=== PATIENT | female | born 1945 | race Native Hawaiian/Other Pacific Islander ===

== ENCOUNTER 2016-11-08 20:28 | Outpatient (CLI) | payer OTHER ==
[~2016-11-08] VITALS: Ht 165.1 cm; Wt 64.4 kg
== END 2016-11-08 23:00 | disposition home or self-care (01) ==
LOC: INF 20:28
DX: M00.012 Staphylococcal arthritis, left shoulder (principal)
CPT/HCPCS: 96365; 96366; 96375; J1642; J3370

== ENCOUNTER 2016-11-09 07:55 | Outpatient (CLI) | payer OTHER ==
[~2016-11-09] VITALS: Ht 165.1 cm; Wt 64.4 kg
== END 2016-11-09 19:01 | disposition home or self-care (01) ==
LOC: INF 07:55
DX: M00.012 Staphylococcal arthritis, left shoulder (principal)
CPT/HCPCS: 96365; 96366; 96375; J3370

== ENCOUNTER 2016-11-10 08:01 | Outpatient (CLI) | payer OTHER ==
[~2016-11-10] VITALS: Ht 30.5 cm; Wt 0.5 kg
[2016-11-10 08:10] VITALS: BP 134/91; TEMP 98.6
--- NOTE | 2016-11-10 08:10 | NUR ---
PT HERE FOR INFUSION TO ROOM 121. R PICC FLUSHED EASILY WITH NS. POSITIVE BLOOD RETURN. VANCOMYCIN PREMIXED FROM PHARMACY INFUSING @ [id number]
== END 2016-11-10 23:00 | disposition home or self-care (01) ==
LOC: INF 08:01
DX: M00.012 Staphylococcal arthritis, left shoulder (principal)
CPT/HCPCS: 96365; 96366; 96375; J3370

== ENCOUNTER 2016-11-11 07:54 | Outpatient (CLI) | payer OTHER ==
[~2016-11-11] VITALS: Ht 30.5 cm; Wt 0.5 kg
== END 2016-11-11 19:03 | disposition home or self-care (01) ==
LOC: INF 07:54
DX: M00.012 Staphylococcal arthritis, left shoulder (principal)
CPT/HCPCS: 96365; 96366; 96375; J3370

== ENCOUNTER 2016-11-12 08:03 | Outpatient (CLI) | payer OTHER ==
[~2016-11-12] VITALS: Ht 30.5 cm; Wt 0.5 kg
== END 2016-11-12 19:29 | disposition home or self-care (01) ==
LOC: INF 08:03
DX: M00.012 Staphylococcal arthritis, left shoulder (principal)
CPT/HCPCS: 96365; 96366; 96375; 96376; J1642; J3370

== ENCOUNTER 2016-11-13 07:59 | Outpatient (CLI) | payer OTHER ==
[~2016-11-13] VITALS: Ht 165.1 cm; Wt 62.1 kg
[2016-11-13 11:10] VITALS: BP 140/70
[2016-11-13 11:43] VITALS: BP 123/83; TEMP 98.9
== END 2016-11-13 19:28 | disposition home or self-care (01) ==
LOC: INF 07:59
DX: M00.012 Staphylococcal arthritis, left shoulder (principal)
CPT/HCPCS: 96365; 96366; 96375; 96376; J1642; J3370

== ENCOUNTER 2016-11-14 07:51 | Outpatient (CLI) | payer OTHER ==
[~2016-11-14] VITALS: Ht 165.1 cm; Wt 61.7 kg
[2016-11-14 08:00] VITALS: BP 144/87; TEMP 97.8
[2016-11-14 10:15] VITALS: BP 134/77; TEMP 97.8
== END 2016-11-14 23:40 | disposition home or self-care (01) ==
LOC: INF 07:51
DX: M00.012 Staphylococcal arthritis, left shoulder (principal)
CPT/HCPCS: 96365; 96366; 96375; 96376; J1642; J3370

== ENCOUNTER 2016-11-15 07:45 | Outpatient (CLI) | payer OTHER ==
[2016-11-15 08:35] LABS: PLATELET COUNT 407 K/uL (152-353)
== END 2016-11-15 19:14 | disposition home or self-care (01) ==
LOC: INF 07:45
PROVIDERS: Internal Medicine
DX: M00.012 Staphylococcal arthritis, left shoulder (principal)
CPT/HCPCS: 36591; 80202; 85027; 85651; 86140; 96374

== ENCOUNTER 2016-11-16 07:53 | Outpatient (CLI) | payer OTHER ==
[~2016-11-16] VITALS: Ht 165.1 cm; Wt 61.7 kg
[2016-11-16 11:51] VITALS: BP 150/87; TEMP 99.9
== END 2016-11-16 10:30 | disposition home or self-care (01) ==
LOC: INF 07:53
DX: M00.012 Staphylococcal arthritis, left shoulder (principal)
CPT/HCPCS: 80202; 96365; 96366; J1642; J3370

== ENCOUNTER 2016-11-17 07:47 | Outpatient (CLI) | payer OTHER ==
[~2016-11-17] VITALS: Ht 165.1 cm; Wt 61.7 kg
== END 2016-11-17 10:00 | disposition home or self-care (01) ==
LOC: INF 07:47
DX: M00.012 Staphylococcal arthritis, left shoulder (principal)
CPT/HCPCS: 96365; 96366; 96375; J1642; J3370

== ENCOUNTER 2016-11-18 07:46 | Outpatient (CLI) | payer OTHER ==
[~2016-11-18] VITALS: Ht 165.1 cm; Wt 61.7 kg
== END 2016-11-18 10:00 | disposition home or self-care (01) ==
LOC: INF 07:46
DX: M00.012 Staphylococcal arthritis, left shoulder (principal)
CPT/HCPCS: 96365; 96366; 96375; J1642; J3370

== ENCOUNTER 2016-11-19 07:55 | Outpatient (CLI) | payer OTHER ==
[2016-11-19 08:15] VITALS: BP 134/72; TEMP 98.3
[2016-11-19 11:46] VITALS: BP 139/82; TEMP 98.3
== END 2016-11-19 19:23 | disposition home or self-care (01) ==
LOC: INF 07:55
DX: M00.012 Staphylococcal arthritis, left shoulder (principal)
CPT/HCPCS: 36591; 80202; 96365; 96366; 96375; J1642; J3370

== ENCOUNTER 2016-11-20 08:06 | Outpatient (CLI) | payer OTHER ==
[~2016-11-20] VITALS: Ht 165.1 cm; Wt 61.7 kg
[2016-11-20 08:20] VITALS: BP 152/82; TEMP 97.5
== END 2016-11-20 19:09 | disposition home or self-care (01) ==
LOC: INF 08:06
DX: M00.012 Staphylococcal arthritis, left shoulder (principal)
CPT/HCPCS: 96365; 96366; 96375; J1642; J3370

== ENCOUNTER 2016-11-21 07:52 | Outpatient (CLI) | payer OTHER ==
[~2016-11-21] VITALS: Ht 165.1 cm; Wt 61.7 kg
[2016-11-21 08:15] VITALS: BP 146/96; TEMP 97.6
[2016-11-21 10:31] VITALS: BP 154/90
== END 2016-11-21 10:30 | disposition home or self-care (01) ==
LOC: INF 07:52
DX: M00.012 Staphylococcal arthritis, left shoulder (principal)
CPT/HCPCS: 96365; 96366; 96375; J1642; J3370

== ENCOUNTER 2016-11-22 07:58 | Outpatient (CLI) | payer OTHER ==
[~2016-11-22] VITALS: Ht 160 cm; Wt 61.7 kg
[2016-11-22 08:34] LABS: PLATELET COUNT 292 K/uL (152-353)
[2016-11-22 14:10] VITALS: BP 151/89; TEMP 98.2
== END 2016-11-22 12:32 | disposition home or self-care (01) ==
LOC: INF 07:58
PROVIDERS: Internal Medicine
DX: M00.012 Staphylococcal arthritis, left shoulder (principal)
CPT/HCPCS: 80202; 85027; 85651; 86140; 96365; 96366; J3370

== ENCOUNTER 2016-11-23 08:02 | Outpatient (CLI) | payer OTHER ==
[~2016-11-23] VITALS: Ht 152.4 cm; Wt 1.8 kg
== END 2016-11-23 11:44 | disposition home or self-care (01) ==
LOC: INF 08:02
DX: M00.012 Staphylococcal arthritis, left shoulder (principal)
CPT/HCPCS: 96365; J1642; J3370

== ENCOUNTER 2016-11-24 07:45 | Outpatient (CLI) | payer OTHER | END 2016-11-24 19:01 | disposition home or self-care (01) | LOC: INF 07:45 | DX: M00.012 Staphylococcal arthritis, left shoulder (principal) | CPT/HCPCS: 96365; 96366; J3370 ==

== ENCOUNTER 2016-11-25 07:46 | Outpatient (CLI) | payer OTHER | END 2016-11-25 19:07 | disposition home or self-care (01) | LOC: INF 07:46 | DX: M00.012 Staphylococcal arthritis, left shoulder (principal) | CPT/HCPCS: 96365; 96366; J1642; J3370 ==

== ENCOUNTER 2016-11-27 07:51 | Outpatient (CLI) | payer OTHER ==
[~2016-11-27] VITALS: Ht 160 cm; Wt 61.7 kg
[2016-11-27 08:06] VITALS: BP 142/90; TEMP 98.4
[2016-11-27 11:00] VITALS: BP 147/88; TEMP 98.4
== END 2016-11-27 11:00 | disposition home or self-care (01) ==
LOC: INF 07:51
DX: M00.012 Staphylococcal arthritis, left shoulder (principal)
CPT/HCPCS: 96365; 96366; 96375; J1642; J3370

== ENCOUNTER 2016-11-28 07:50 | Outpatient (CLI) | payer OTHER ==
[2016-11-28 08:05] VITALS: BP 136/94; TEMP 97.4
[2016-11-28 10:35] VITALS: BP 136/95; TEMP 97.4
== END 2016-11-28 19:03 | disposition home or self-care (01) ==
LOC: INF 07:50
DX: M00.012 Staphylococcal arthritis, left shoulder (principal)
CPT/HCPCS: 96365; 96366; 96375; J1642; J3370

== ENCOUNTER 2016-11-29 07:54 | Outpatient (CLI) | payer OTHER ==
[~2016-11-29] VITALS: Ht 160 cm; Wt 61.7 kg
[2016-11-29 08:05] VITALS: BP 146/93; TEMP 98.7
[2016-11-29 08:50] LABS: PLATELET COUNT 227 K/uL (152-353)
[2016-11-29 11:10] VITALS: BP 136/72; TEMP 98.7
== END 2016-11-29 11:10 | disposition home or self-care (01) ==
LOC: INF 07:54
PROVIDERS: Internal Medicine
DX: M00.012 Staphylococcal arthritis, left shoulder (principal)
CPT/HCPCS: 36591; 85027; 85651; 86140; 96365; 96366; 96375; J1642; J3370

== ENCOUNTER 2016-11-30 08:04 | Outpatient (CLI) | payer OTHER | END 2016-11-30 10:51 | disposition home or self-care (01) | LOC: INF 08:04 | DX: M00.012 Staphylococcal arthritis, left shoulder (principal) | CPT/HCPCS: 96365; 96366; J3370 ==

== ENCOUNTER 2016-12-01 07:47 | Outpatient (CLI) | payer OTHER ==
[~2016-12-01] VITALS: Ht 30.5 cm; Wt 0.5 kg
--- NOTE | 2016-12-01 08:00 | NUR ---
PT TO INFUSION ROOM. R PICC FLUSHED EASILY WITH SALINE. VANCO PREMIXED FROM PHARMACY FOR TODAY STARTED INFUSING AT THIS TIME.
== END 2016-12-01 12:00 | disposition home or self-care (01) ==
LOC: INF 07:47
DX: M00.012 Staphylococcal arthritis, left shoulder (principal)
CPT/HCPCS: 96365; 96366; J1642; J3370

== ENCOUNTER 2016-12-02 07:44 | Outpatient (CLI) | payer OTHER ==
[~2016-12-02] VITALS: Ht 30.5 cm; Wt 0.5 kg
[2016-12-02 10:09] LABS: POTASSIUM 3.8 mmol/L (3.6-5.2); SODIUM 137 mmol/L (136-145)
== END 2016-12-02 11:00 | disposition home or self-care (01) ==
LOC: INF 07:44
PROVIDERS: Emergency Medicine
DX: M00.012 Staphylococcal arthritis, left shoulder (principal)
CPT/HCPCS: 36591; 80048; 80202; 96365; 96366; J1642; J3370

== ENCOUNTER 2016-12-04 07:57 | Outpatient (CLI) | payer OTHER ==
[~2016-12-04] VITALS: Ht 165.1 cm; Wt 61.7 kg
[2016-12-04 08:05] VITALS: BP 124/82; TEMP 98.8
[2016-12-04 10:40] VITALS: BP 120/82
== END 2016-12-04 19:04 | disposition home or self-care (01) ==
LOC: INF 07:57
DX: M00.012 Staphylococcal arthritis, left shoulder (principal)
CPT/HCPCS: 96365; 96366; 96375; J1642; J3370

== ENCOUNTER 2016-12-05 07:46 | Outpatient (CLI) | payer OTHER ==
[~2016-12-05] VITALS: Ht 160 cm; Wt 61.7 kg
[2016-12-05 08:05] VITALS: BP 129/84; TEMP 98.7
[2016-12-05 11:29] VITALS: BP 127/61
== END 2016-12-05 10:00 | disposition home or self-care (01) ==
LOC: INF 07:46
DX: M00.012 Staphylococcal arthritis, left shoulder (principal)
CPT/HCPCS: 96365; 96366; 96375; J3370

== ENCOUNTER 2016-12-06 07:47 | Outpatient (CLI) | payer OTHER ==
[~2016-12-06] VITALS: Ht 160 cm; Wt 61.7 kg
[2016-12-06 08:05] VITALS: BP 133/73; TEMP 98.4
[2016-12-06 08:37] LABS: PLATELET COUNT 199 K/uL (152-353)
[2016-12-06 11:35] VITALS: BP 141/78; TEMP 98.4
== END 2016-12-06 19:59 | disposition home or self-care (01) ==
LOC: INF 07:47
PROVIDERS: Internal Medicine
DX: M00.012 Staphylococcal arthritis, left shoulder (principal)
CPT/HCPCS: 36591; 85027; 85651; 86140; 96365; 96366; 96375; J1642; J3370

== ENCOUNTER 2016-12-07 07:57 | Outpatient (CLI) | payer OTHER ==
[~2016-12-07] VITALS: Ht 30.5 cm; Wt 0.5 kg
== END 2016-12-07 10:00 | disposition home or self-care (01) ==
LOC: INF 07:57
DX: M00.012 Staphylococcal arthritis, left shoulder (principal)
CPT/HCPCS: 96365; 96366; 96375; J1642; J3370

== ENCOUNTER 2016-12-08 07:40 | Outpatient (CLI) | payer OTHER | END 2016-12-08 19:06 | disposition home or self-care (01) | LOC: INF 07:40 | DX: M00.012 Staphylococcal arthritis, left shoulder (principal) | CPT/HCPCS: 96365; 96366; 96375 ==

== ENCOUNTER 2016-12-09 07:47 | Outpatient (CLI) | payer OTHER | END 2016-12-09 18:59 | disposition home or self-care (01) | LOC: INF 07:47 | DX: M00.012 Staphylococcal arthritis, left shoulder (principal) | CPT/HCPCS: 96365; 96366; 96375; J1642 ==

== ENCOUNTER 2016-12-10 08:04 | Outpatient (CLI) | payer OTHER ==
[~2016-12-10] VITALS: Ht 165.1 cm; Wt 61.7 kg
== END 2016-12-10 12:43 | disposition home or self-care (01) ==
LOC: INF 08:04
DX: M00.012 Staphylococcal arthritis, left shoulder (principal)
CPT/HCPCS: 80202; 96365; 96366; 96375; J1642; J3370

== ENCOUNTER 2016-12-13 07:56 | Outpatient (CLI) | payer OTHER ==
[~2016-12-13] VITALS: Ht 160 cm; Wt 61.7 kg
[2016-12-13 09:06] LABS: PLATELET COUNT 217 K/uL (152-353)
== END 2016-12-13 10:55 | disposition home or self-care (01) ==
LOC: INF 07:56
PROVIDERS: Internal Medicine
DX: M00.012 Staphylococcal arthritis, left shoulder (principal)
CPT/HCPCS: 80202; 85027; 85651; 86140; 96365; 96366; 96375; J1642; J3370

== ENCOUNTER 2016-12-14 07:51 | Outpatient (CLI) | payer OTHER ==
[~2016-12-14] VITALS: Ht 162.6 cm; Wt 56.7 kg
== END 2016-12-14 19:03 | disposition home or self-care (01) ==
LOC: INF 07:51
DX: M00.012 Staphylococcal arthritis, left shoulder (principal)
CPT/HCPCS: 96365; 96366; 96375; J1642; J3370

== ENCOUNTER 2016-12-15 07:35 | Outpatient (CLI) | payer OTHER ==
[~2016-12-15] VITALS: Ht 152.4 cm; Wt 1.8 kg
== END 2016-12-15 10:25 | disposition home or self-care (01) ==
LOC: INF 07:35
DX: M00.012 Staphylococcal arthritis, left shoulder (principal)
CPT/HCPCS: 96365; 96366; 96375; J1642; J3370

== ENCOUNTER 2016-12-16 07:09 | Outpatient (CLI) | payer OTHER | END 2016-12-16 10:05 | disposition home or self-care (01) | LOC: INF 07:09 | DX: M00.012 Staphylococcal arthritis, left shoulder (principal) | CPT/HCPCS: 96365; 96366; 96375; J1642 ==

== ENCOUNTER 2016-12-17 07:46 | Outpatient (CLI) | payer OTHER ==
[~2016-12-17] VITALS: Ht 160 cm; Wt 61.7 kg
== END 2016-12-17 12:00 | disposition home or self-care (01) ==
LOC: INF 07:46
DX: M00.012 Staphylococcal arthritis, left shoulder (principal)
CPT/HCPCS: 36591; 80202; 96365; 96366; 96375; J1642; J3370

== ENCOUNTER 2016-12-18 07:33 | Outpatient (CLI) | payer OTHER ==
[2016-12-18 08:10] VITALS: BP 137/78; TEMP 98.7
[2016-12-18 09:20] LABS: POTASSIUM 3.3 mmol/L (3.6-5.2); SODIUM 139 mmol/L (136-145)
[2016-12-18 10:50] VITALS: BP 140/82; TEMP 98.1
== END 2016-12-18 11:10 | disposition home or self-care (01) ==
LOC: INF 07:33
PROVIDERS: Emergency Medicine
DX: M00.012 Staphylococcal arthritis, left shoulder (principal)
CPT/HCPCS: 36591; 80048; 85651; 96365; 96366; 96375; J1642

== ENCOUNTER 2016-12-19 07:53 | Outpatient (CLI) | payer OTHER ==
[~2016-12-19] VITALS: Ht 160 cm; Wt 61.7 kg
[2016-12-19 08:05] VITALS: BP 135/84; TEMP 97.8
[2016-12-19 10:50] VITALS: BP 135/79
== END 2016-12-19 19:00 | disposition home or self-care (01) ==
LOC: INF 07:53
DX: M00.012 Staphylococcal arthritis, left shoulder (principal)
CPT/HCPCS: 96365; 96366; 96375; J1642; J3370

== ENCOUNTER 2016-12-20 07:45 | Outpatient (CLI) | payer OTHER ==
[2016-12-20 08:00] VITALS: BP 147/80; TEMP 98.2
[2016-12-20 10:55] VITALS: BP 133/77; TEMP 97.8
== END 2016-12-20 17:51 | disposition home or self-care (01) ==
LOC: INF 07:45
DX: M00.012 Staphylococcal arthritis, left shoulder (principal)
CPT/HCPCS: 87070; 96365; 96366; J3370

== ENCOUNTER 2017-01-24 19:49 | Outpatient (CLI) | payer OTHER ==
[~2017-01-24] VITALS: Ht 165.1 cm; Wt 58.1 kg
== END 2017-01-24 22:00 | disposition home or self-care (01) ==
LOC: INF 19:49
DX: M00.072 Staphylococcal arthritis, left ankle and foot (principal)
CPT/HCPCS: 96365; 96366; 96375; J1642; J3370

== ENCOUNTER 2017-01-25 08:14 | Outpatient (CLI) | payer OTHER ==
[~2017-01-25] VITALS: Ht 167.6 cm; Wt 58.1 kg
== END 2017-01-25 19:59 | disposition home or self-care (01) ==
LOC: INF 08:14
DX: M00.012 Staphylococcal arthritis, left shoulder (principal)
CPT/HCPCS: 96365; 96366; 96375; 96376; J1642; J3370

== ENCOUNTER 2017-01-26 08:06 | Outpatient (CLI) | payer OTHER ==
[~2017-01-26] VITALS: Ht 165.1 cm; Wt 58.1 kg
== END 2017-01-26 19:00 | disposition home or self-care (01) ==
LOC: INF 08:06
DX: M00.012 Staphylococcal arthritis, left shoulder (principal)
CPT/HCPCS: 96365; 96366; 96375; 96376; J1642; J3370

== ENCOUNTER 2017-01-27 08:03 | Outpatient (CLI) | payer OTHER ==
[~2017-01-27] VITALS: Ht 165.1 cm; Wt 58.1 kg
== END 2017-01-27 19:04 | disposition home or self-care (01) ==
LOC: INF 08:03
DX: M00.012 Staphylococcal arthritis, left shoulder (principal)
CPT/HCPCS: 80202; 96365; 96366; 96375; 96376; J1642; J3370

== ENCOUNTER 2017-01-29 08:23 | Outpatient (CLI) | payer OTHER ==
[~2017-01-29] VITALS: Ht 165.1 cm; Wt 58.1 kg
[2017-01-29 08:30] VITALS: BP 147/78; TEMP 98
[2017-01-29 10:48] VITALS: BP 137/75
== END 2017-01-29 22:00 | disposition home or self-care (01) ==
LOC: INF 08:23
DX: M00.012 Staphylococcal arthritis, left shoulder (principal)
CPT/HCPCS: 96365; 96366; 96375; J1642; J3370

== ENCOUNTER 2017-01-30 08:16 | Outpatient (CLI) | payer OTHER ==
[~2017-01-30] VITALS: Ht 165.1 cm; Wt 58.1 kg
== END 2017-01-30 19:50 | disposition home or self-care (01) ==
LOC: INF 08:16
DX: M00.012 Staphylococcal arthritis, left shoulder (principal)
CPT/HCPCS: 96365; 96366; 96375; J1642; J3370

== ENCOUNTER 2017-02-01 08:32 | Outpatient (CLI) | payer OTHER ==
[~2017-02-01] VITALS: Ht 165.1 cm; Wt 58.1 kg
== END 2017-02-01 22:00 | disposition home or self-care (01) ==
LOC: INF 08:32
DX: M00.012 Staphylococcal arthritis, left shoulder (principal)
CPT/HCPCS: 96365; 96366; J1642; J3370

== ENCOUNTER 2017-02-02 07:59 | Outpatient (CLI) | payer OTHER ==
[~2017-02-02] VITALS: Ht 30.5 cm; Wt 0.5 kg
== END 2017-02-02 22:00 | disposition home or self-care (01) ==
LOC: INF 07:59
DX: M00.012 Staphylococcal arthritis, left shoulder (principal)
CPT/HCPCS: 80202; 96365; 96366; 96375; 96376; J1642; J3370

== ENCOUNTER 2017-02-03 08:00 | Outpatient (CLI) | payer OTHER ==
[~2017-02-03] VITALS: Ht 30.5 cm; Wt 0.5 kg
== END 2017-02-03 22:00 | disposition home or self-care (01) ==
LOC: INF 08:00
DX: M00.012 Staphylococcal arthritis, left shoulder (principal)
CPT/HCPCS: 96365; 96366; J3370

== ENCOUNTER 2017-02-04 08:29 | Outpatient (CLI) | payer OTHER ==
[~2017-02-04] VITALS: Ht 165.1 cm; Wt 58.1 kg
[2017-02-04 11:37] LABS: PLATELET COUNT 274 K/uL (152-353)
[2017-02-04 11:54] LABS: POTASSIUM 3.8 mmol/L (3.6-5.2); SODIUM 134 mmol/L (136-145)
== END 2017-02-04 19:30 | disposition home or self-care (01) ==
LOC: INF 08:29
PROVIDERS: Internal Medicine
DX: M00.012 Staphylococcal arthritis, left shoulder (principal)
CPT/HCPCS: 80048; 85027; 85651; 86140; J1642; J3370

== ENCOUNTER 2017-02-05 08:15 | Outpatient (CLI) | payer OTHER ==
[~2017-02-05] VITALS: Ht 33 cm; Wt 0.5 kg
== END 2017-02-05 22:00 | disposition home or self-care (01) ==
LOC: INF 08:15
DX: M00.012 Staphylococcal arthritis, left shoulder (principal)
CPT/HCPCS: 96365; 96366; 96375; 96376; J1642; J3370

== ENCOUNTER 2017-02-06 08:01 | Outpatient (CLI) | payer OTHER ==
[~2017-02-06] VITALS: Ht 165.1 cm; Wt 58.1 kg
== END 2017-02-06 22:01 | disposition home or self-care (01) ==
LOC: INF 08:01
DX: M00.012 Staphylococcal arthritis, left shoulder (principal)
CPT/HCPCS: 96365; 96366; 96375; J1642; J3370

== ENCOUNTER 2017-02-08 08:00 | Outpatient (CLI) | payer OTHER ==
[~2017-02-08] VITALS: Ht 165.1 cm; Wt 58.1 kg
== END 2017-02-08 19:04 | disposition home or self-care (01) ==
LOC: INF 08:00
DX: M00.012 Staphylococcal arthritis, left shoulder (principal)
CPT/HCPCS: 96365; 96366; 96375; 96376; J1642; J3370

== ENCOUNTER 2017-02-09 07:57 | Outpatient (CLI) | payer OTHER | END 2017-02-09 20:29 | disposition home or self-care (01) | LOC: INF 07:57 | DX: M00.012 Staphylococcal arthritis, left shoulder (principal) | CPT/HCPCS: J1642 ==

== ENCOUNTER 2017-02-10 07:40 | Outpatient (CLI) | payer OTHER | END 2017-02-10 19:20 | disposition home or self-care (01) | LOC: INF 07:40 | DX: M00.012 Staphylococcal arthritis, left shoulder (principal) | CPT/HCPCS: 80202; 96365; 96366; 96375; 96376; J1642 ==

== ENCOUNTER 2017-02-11 08:00 | Outpatient (CLI) | payer OTHER ==
[~2017-02-11] VITALS: Ht 165.1 cm; Wt 58.1 kg
[2017-02-11 11:17] LABS: PLATELET COUNT 195 K/uL (152-353)
== END 2017-02-11 22:00 | disposition home or self-care (01) ==
LOC: INF 08:00
PROVIDERS: Internal Medicine
DX: M00.012 Staphylococcal arthritis, left shoulder (principal)
CPT/HCPCS: 85027; 85651; 86140; 96365; 96366; 96375; J1642; J3370

== ENCOUNTER 2017-02-12 07:57 | Outpatient (CLI) | payer OTHER ==
[~2017-02-12] VITALS: Ht 165.1 cm; Wt 58.1 kg
[2017-02-12 10:25] VITALS: BP 137/76; TEMP 97.6
== END 2017-02-12 09:28 | disposition home or self-care (01) ==
LOC: INF 07:57
DX: M00.012 Staphylococcal arthritis, left shoulder (principal)
CPT/HCPCS: 36591; 80202; 96374

== ENCOUNTER 2017-02-13 07:43 | Outpatient (CLI) | payer OTHER ==
[~2017-02-13] VITALS: Ht 165.1 cm; Wt 58.1 kg
[2017-02-13 08:00] VITALS: BP 128/77; TEMP 97.9
[2017-02-13 10:40] VITALS: BP 130/70
== END 2017-02-13 10:40 | disposition home or self-care (01) ==
LOC: INF 07:43
DX: M00.012 Staphylococcal arthritis, left shoulder (principal)
CPT/HCPCS: 96365; 96366; 96375; J3370

== ENCOUNTER 2017-02-14 07:56 | Outpatient (CLI) | payer OTHER ==
[~2017-02-14] VITALS: Ht 165.1 cm; Wt 58.1 kg
[2017-02-14 08:10] VITALS: BP 111/76; TEMP 98.6
[2017-02-14 09:01] LABS: POTASSIUM 4.6 mmol/L (3.6-5.2); SODIUM 130 mmol/L (136-145)
[2017-02-14 11:15] VITALS: BP 113/67; TEMP 97.4
== END 2017-02-14 18:58 | disposition home or self-care (01) ==
LOC: INF 07:56
PROVIDERS: Emergency Medicine
DX: M00.012 Staphylococcal arthritis, left shoulder (principal)
CPT/HCPCS: 36591; 80048; 96365; 96366; J3370

== ENCOUNTER 2017-02-15 07:59 | Outpatient (CLI) | payer OTHER ==
[~2017-02-15] VITALS: Ht 165.1 cm; Wt 58.1 kg
== END 2017-02-15 10:30 | disposition home or self-care (01) ==
LOC: INF 07:59
DX: M00.012 Staphylococcal arthritis, left shoulder (principal)
CPT/HCPCS: 96365; 96366; 96375; J1642; J3370

== ENCOUNTER 2017-02-16 07:44 | Outpatient (CLI) | payer OTHER ==
[~2017-02-16] VITALS: Ht 30.5 cm; Wt 0.5 kg
== END 2017-02-16 10:00 | disposition home or self-care (01) ==
LOC: INF 07:44
DX: M00.012 Staphylococcal arthritis, left shoulder (principal)
CPT/HCPCS: 96365; 96366; 96375; J1642; J3370

== ENCOUNTER 2017-02-17 07:46 | Outpatient (CLI) | payer OTHER | END 2017-02-17 18:59 | disposition home or self-care (01) | LOC: INF 07:46 | DX: M00.012 Staphylococcal arthritis, left shoulder (principal) | CPT/HCPCS: 96365; 96366; 96375; J1642; J3370 ==

== ENCOUNTER 2017-02-18 07:50 | Outpatient (CLI) | payer OTHER ==
[2017-02-18 08:48] LABS: SODIUM 133 mmol/L (136-145)
[2017-02-18 12:43] LABS: PLATELET COUNT 167 K/uL (152-353)
== END 2017-02-18 18:59 | disposition home or self-care (01) ==
LOC: INF 07:50
DX: M00.012 Staphylococcal arthritis, left shoulder (principal)
CPT/HCPCS: 80048; 80202; 85027; 85651; 86140; 96365; 96366; 96375; J1642; J3370

== ENCOUNTER 2017-02-19 08:11 | Outpatient (CLI) | payer OTHER ==
[~2017-02-19] VITALS: Ht 165.1 cm; Wt 58.1 kg
[2017-02-19 08:20] VITALS: BP 134/76; TEMP 97.6
[2017-02-19 11:20] VITALS: BP 117/69; TEMP 97.6
== END 2017-02-19 11:20 | disposition home or self-care (01) ==
LOC: INF 08:11
DX: M00.012 Staphylococcal arthritis, left shoulder (principal)
CPT/HCPCS: 96365; 96366; 96375; J1642; J3370

== ENCOUNTER 2017-02-21 08:00 | Outpatient (CLI) | payer OTHER ==
[~2017-02-21] VITALS: Ht 165.1 cm; Wt 58.1 kg
[2017-02-21 08:10] VITALS: BP 114/76; TEMP 97.8
[2017-02-21 11:15] VITALS: BP 140/82; TEMP 97.8
[2017-02-21 11:38] LABS: POTASSIUM 4.1 mmol/L (3.6-5.2); SODIUM 135 mmol/L (136-145)
== END 2017-02-21 11:10 | disposition home or self-care (01) ==
LOC: INF 08:00
PROVIDERS: Emergency Medicine
DX: M00.012 Staphylococcal arthritis, left shoulder (principal)
CPT/HCPCS: 80048; 96365; 96366; J3370

== ENCOUNTER 2017-02-22 08:01 | Outpatient (CLI) | payer OTHER ==
[~2017-02-22] VITALS: Ht 167.6 cm; Wt 58.1 kg
== END 2017-02-22 18:53 | disposition home or self-care (01) ==
LOC: INF 08:01
DX: M00.012 Staphylococcal arthritis, left shoulder (principal)
CPT/HCPCS: 96365; 96366; J1642; J3370

== ENCOUNTER 2017-02-23 07:17 | Outpatient (CLI) | payer OTHER | END 2017-02-23 10:00 | disposition home or self-care (01) | LOC: INF 07:17 | DX: M00.012 Staphylococcal arthritis, left shoulder (principal) | CPT/HCPCS: 96365; 96366; 96375; J3370 ==

== ENCOUNTER 2017-02-27 08:06 | Outpatient (CLI) | payer OTHER ==
[~2017-02-27] VITALS: Ht 165.1 cm; Wt 58.1 kg
[2017-02-27 08:10] VITALS: BP 141/76; TEMP 98.1
[2017-02-27 09:32] LABS: PLATELET COUNT 192 K/uL (152-353)
[2017-02-27 11:10] VITALS: BP 141/77; TEMP 98.3
== END 2017-02-27 11:10 | disposition home or self-care (01) ==
LOC: INF 08:06
PROVIDERS: Emergency Medicine
DX: M00.012 Staphylococcal arthritis, left shoulder (principal)
CPT/HCPCS: 85027; 85651; 86140; 96365; 96366; 96375; J3370

== ENCOUNTER 2017-02-28 07:50 | Outpatient (CLI) | payer OTHER ==
[~2017-02-28] VITALS: Ht 165.1 cm; Wt 58.1 kg
== END 2017-02-28 10:46 | disposition home or self-care (01) ==
LOC: INF 07:50
DX: M00.012 Staphylococcal arthritis, left shoulder (principal)
CPT/HCPCS: 96365; 96366; J1642; J3370

== ENCOUNTER 2017-03-01 08:01 | Outpatient (CLI) | payer OTHER ==
[~2017-03-01] VITALS: Ht 165.1 cm; Wt 58.1 kg
== END 2017-03-01 10:45 | disposition home or self-care (01) ==
LOC: INF 08:01
DX: M00.012 Staphylococcal arthritis, left shoulder (principal)
CPT/HCPCS: 96365; 96366; J3370

== ENCOUNTER 2017-03-02 07:54 | Outpatient (CLI) | payer OTHER ==
[~2017-03-02] VITALS: Ht 165.1 cm; Wt 58.1 kg
== END 2017-03-02 09:56 | disposition home or self-care (01) ==
LOC: INF 07:54
DX: M00.012 Staphylococcal arthritis, left shoulder (principal)
CPT/HCPCS: 96365; 96366; J3370

== ENCOUNTER 2017-03-03 07:50 | Outpatient (CLI) | payer OTHER ==
[~2017-03-03] VITALS: Ht 165.1 cm; Wt 58.1 kg
== END 2017-03-03 20:28 | disposition home or self-care (01) ==
LOC: INF 07:50
DX: M00.012 Staphylococcal arthritis, left shoulder (principal)
CPT/HCPCS: 80202; 96365; 96366; J1642; J3370

== ENCOUNTER 2017-03-04 07:57 | Outpatient (CLI) | payer OTHER ==
[~2017-03-04] VITALS: Ht 165.1 cm; Wt 58.1 kg
== END 2017-03-04 11:00 | disposition home or self-care (01) ==
LOC: INF 07:57
DX: M00.012 Staphylococcal arthritis, left shoulder (principal)
CPT/HCPCS: 96365; 96366; J3370

== ENCOUNTER 2017-03-05 08:04 | Outpatient (CLI) | payer OTHER ==
[~2017-03-05] VITALS: Ht 165.1 cm; Wt 58.1 kg
[2017-03-05 08:20] VITALS: BP 11/71; TEMP 98.1
[2017-03-05 08:48] LABS: PLATELET COUNT 200 K/uL (152-353)
[2017-03-05 10:50] VITALS: BP 129/82; TEMP 98.1
== END 2017-03-05 10:50 | disposition home or self-care (01) ==
LOC: INF 08:04
PROVIDERS: Emergency Medicine
DX: M00.012 Staphylococcal arthritis, left shoulder (principal)
CPT/HCPCS: 36591; 85027; 85651; 86140; 96365; 96366; 96375; J3370